=== PATIENT | male | born 1965 | race Caucasian/White ===

== ENCOUNTER 2016-12-06 21:55 | Emergency (ER) | payer MEDICARE, OTHER, SELFPAY ==
[~2016-12-06 21:55] MED LIST: ABILIFY20 MG; ALDACTONE25 M1 PO; ALPROSTADIL 40 MCG IC; ANORO ELLIPTA1 EAC1 INH; ASPIRIN EC325 M1 PO; ASPIRIN325 MG PO; ASPIRIN81 MG; ASPIRIN81 MG PO; BACITRACIN28.4 G2 TP; BISACODYL5 M1 PO; BISCOLAX10 MG PR; BUSPAR30 MG; BUSPIRONE HCL30 MG; CAVERJECT40 MCG IC; CITRATE OF MAG300 M1 PO; CLEOCIN HCL150 M1 PO; CLEOCIN HCL300 M1 PO; CONSTULOSE10 G/15 ML; CRESTOR20 MG; CULTURELLE1 EAC1 PO; CYCLOBENZAPRINE10 M1 PO; CYCLOBENZAPRINE5 M1 PO; CYMBALTA30 M1 PO; DEEP SEA45 M1; DESIPRAMINE HCL10 MG; DESIPRAMINE HCL10 MG PO; DICYCLOMINE HCL20 M1 PO; FLEXERIL10 MG; FLEXERIL10 MG PO; FUROSEMIDE20 MG PO; GABAPENTIN600 MG PO; GLIPIZIDE10 MG PO; HYDROPHILIC113 GM TOP; HYDROXYZINE HCL50 M1 PO; IMDUR30 MG; IMDUR60 MG; ISOSORBIDE MONO60 M3 PO; ISOSORBIDE MONO60 MG PO; LANTUS SOL100 UNIT/1 SC; LANTUS100 U/ML; LANTUS100 U/ML SC; LASIX20 M1 PO; LASIX40 M1 PO; LEVAQUIN750 M1 PO; LEVOTHYROXINE50 MC3 PO; LEVOTHYROXINE50 MCG PO; LIPITOR40 M1 PO; LISINOPRIL10 MG PO; LISINOPRIL5 MG; LOPRESSOR50 M1 PO; LOPRESSOR50 MG; LYRICA150 MG/CAP PO; MEDS; METHADONE HCL10 M1 PO; METHADONE HCL10 MG; METHADONE HCL10 MG PO; METHADONE5 MG; METOCLOPRAMIDE10 M1 PO; METOCLOPRAMIDE10 MG PO; METOPROLOL TART25 MG; METOPROLOL TART50 MG PO; MIRALAX17 G2 PO; MIRTAZAPINE15 MG; MIRTAZAPINE45 M2 PO; MIRTAZAPINE45 MG PO; MOXIFLOXACIN H400 MG PO; MULTI VITAMIN1 EAC1 PO; MULTIVITAMINS1 EAC5 PO; NEURONTIN300 M1 PO; NEURONTIN300 MG; NICODERM CQ1 EAC2 TD; NICOTINE GUM4 MG CH; NIFEDIAC CC60 MG; NITROGLYCERIN0.4 M2 SL; NORVASC10 M2 PO; NOVOLIN R100 U/ML; NOVOLOG FL100 UNIT/1; NOVOLOG FL100 UNIT/1 SQ; NOVOLOG FL100 UNIT/2 SC; NOVOLOG100 U/M; OMEGA 31 CAP; OMEPRAZOLE20 M2 PO; OMEPRAZOLE20 M3 PO; OMEPRAZOLE20 MG; PERCOCET 5/3251 TAB PO; PLAVIX75 M1 PO; PLAVIX75 MG PO; PREDNISONE50 M1 PO; PREVALITE4 GM/PK3 PO; RANEXA1000 M1 PO; RANEXA1000 MG PO; RANEXA500 MG PO; REGLAN10 MG; SENNA LAX8.6 M2 PO; SIMVASTATIN20 MG PO; SODIUM CHLORI1000 ML TOP; SODIUM CHLORIDE20 M3 TOP; SULFAMETHOXAZO1 EAC5 PO; SULFAMYLON SOL250 M1 EXT; ULTRAM50 M1 PO; VENTOLIN HFA18 G2 INH; WELLBUTRIN SR100 M2 PO; WELLBUTRIN XL300 MG; WELLBUTRIN100 MG; WELLBUTRIN100 MG PO; ZOCOR80 MG; ZOFRAN4 M2 PO; [UNRECOGNIZED DRUG - OTHER]
[2017-01-11] MEDS ORDERED: DEMADEX20 M1 PO ×2 (08:35)
== END 2016-12-07 00:28 ==
LOC: EDMED 21:55
DX: K59.00 Constipation, unspecified (principal); Z87.19 Personal history of other diseases of the digestive system; J44.9 Chronic obstructive pulmonary disease, unspecified; Z90.89 Acquired absence of other organs; Z90.49 Acquired absence of other specified parts of digestive tract; Z79.82 Long term (current) use of aspirin; Z79.899 Other long term (current) drug therapy; F17.200 Nicotine dependence, unspecified, uncomplicated

== ENCOUNTER 2017-02-10 18:17 | Observation (INO) | payer MEDICARE ==
[~2017-02-10 18:17] MED LIST changes: +DEMADEX20 M1 PO
[2017-02-10] MEDS ORDERED: NORVASC10 M2 PO (18:43)
[2017-02-10] MEDS ORDERED: ALBUTEROL2.5 MG/3 M INH (18:43)
[2017-02-10] MEDS ORDERED: VENTOLIN HFA18 G2 PO (18:43)
[2017-02-10] MEDS ORDERED: BACITRACIN28.4 G2 TP (18:44)
[2017-02-10] MEDS ORDERED: LIPITOR40 M1 PO (18:44)
[2017-02-10] MEDS ORDERED: ASPIRIN EC325 M1 PO (18:44)
[2017-02-10] MEDS ORDERED: BISCOLAX10 MG PR (18:44)
[2017-02-10] MEDS ORDERED: PLAVIX75 M1 PO (18:45)
[2017-02-10] MEDS ORDERED: BISACODYL5 M1 PO (18:45)
[2017-02-10] MEDS ORDERED: BUPROPION HCL100 M2 PO (18:45)
[2017-02-10] MEDS ORDERED: CYCLOBENZAPRINE10 M1 PO (18:46)
[2017-02-10] MEDS ORDERED: ISOSORBIDE MONO30 M4 PO (18:47)
[2017-02-10] MEDS ORDERED: AQUAPHOR99 GM TP (18:47)
[2017-02-10] MEDS ORDERED: SENNA S PO (18:47)
[2017-02-10] MEDS ORDERED: METHADONE HCL10 M1 PO (18:48)
[2017-02-10] MEDS ORDERED: LEVO-T50 MCG PO (18:48)
[2017-02-10] MEDS ORDERED: METOLAZONE2.5 M1 PO (18:48)
[2017-02-10] MEDS ORDERED: LOPRESSOR50 M1 PO (18:49)
[2017-02-10] MEDS ORDERED: NICOTINE GUM2 MG CH (18:49)
[2017-02-10] MEDS ORDERED: MIRTAZAPINE30 M2 PO (18:49)
[2017-02-10] MEDS ORDERED: OMEPRAZOLE MAGN20 M1 PO (18:49)
[2017-02-10] MEDS ORDERED: SODIUM CHLORIDE (18:50)
[2017-02-10] MEDS ORDERED: LYRICA150 MG/CAP PO (18:50)
[2017-02-10] MEDS ORDERED: POTASSIUM CHLO10 ME2 PO (18:50)
[2017-02-10] MEDS ORDERED: DEMADEX20 M1 PO ×2 (18:51→18:52)
[2017-02-10] MEDS ORDERED: NOVOLOG100 UNIT/2 SC (18:53)
[2017-02-10] MEDS ORDERED: LANTUS SOL100 UNIT/1 SC (18:53)
[2017-02-10 19:08] LABS: BASO % 0.2 % (0-2); EOS % 1.2 % (0-7); EOSINOPHIL ABSOLUTE COUNT 0.1 tho/cmm (0.0-0.7); HCT-HEMATOCRIT 42.9 % (36.0-53.5); HGB-HEMOGLOBIN 15.3 gm/dl (13.5-17.0); IMMATURE GRANULOCYTES ABSOLUTE 0.05 tho/cmm (0-0.03); IMMATURE GRANULOCYTES PERCENT 0.6 % (0-0.3); LYMPH % 30.9 % (20-45); LYMPH ABSOLUTE COUNT 2.8 tho/cmm (0.8-4.5); MCH (MEAN CORPUSCULAR HGB) 31.6 pg (28.0-32.0); MCHC MEAN CORPUSCULAR HGB CONC 35.7 % (32.0-36.0); MCV (MEAN CELL VOLUME) 88.6 fl (82.0-96.0); MEAN PLATELET VOLUME 9.7 cmc (9.4-12.4); MONO % 12.3 % (0-12); MONOCYTE ABSOLUTE COUNT 1.1 tho/cmm (0.0-1.2); NEUTROPHIL ABSOLUTE COUNT 4.9 tho/cmm (1.6-8.0); NEUTROPHIL-AUTOMATED 4.9 tho/cmm (1.6-8.0); NEUTROPHILS % 54.8 % (40-80); PLATELET COUNT 175 tho/cmm (150-450); RED BLOOD COUNT 4.84 mil/cmm (4.40-5.70); RED CELL DISTRIBUTION WIDTH 15.4 % (12.4-16.4)
[2017-02-10 19:26] LABS: ALB/GLOB RATIO 0.5 (0.8-2.0); ALKALINE PHOSPHATASE 101 U/L (33-138); ALT/SGPT 21 U/L (12-78); ANION GAP 13 mmol/L (0-20); AST/SGOT 22 U/L (10-40); BILIRUBIN,TOTAL 0.4 mg/dl (0.0-1.5); BLOOD UREA NITROGEN 42 mg/dl (6-24); CALCIUM 9.2 mg/dl (8.5-10.5); CARBON DIOXIDE-VENOUS 32 mmol/L (22-32); CHLORIDE 93 mmol/l (96-110); CREATININE 1.97 mg/dl (0.60-1.30); LIPASE 60 U/L (73-393); POTASSIUM 3.3 mmol/L (3.7-5.1); SODIUM 135 mmol/L (135-145); eGFR VALUE FOR BLACK 45 mL/Min
[2017-02-10 19:30] LABS: GLUCOSE 66 mg/dL (70-110)
[2017-02-10 20:22] LABS: URINE BILIRUBIN NEGATIVE (NEG); URINE BLOOD SMALL (NEG); URINE GLUCOSE (UA) NEGATIVE (NEG); URINE KETONE NEGATIVE (NEG); URINE LEUKOCYTE ESTERASE NEGATIVE (NEG); URINE NITRITE NEGATIVE (NEG); URINE PROTEIN MODERATE (NEG)
[2017-02-10 20:23] LABS: URINE APPEARANCE CLEAR; URINE COLOR YELLOW
[2017-02-10 20:26] LABS: URINE EPITHELIAL CELLS RARE /[HPF] (0-10); URINE WBC 0 /[HPF] (0-5)
[2017-02-11 06:03] LABS: ANION GAP 12 mmol/L (0-20); BLOOD UREA NITROGEN 32 mg/dl (6-24); CALCIUM 8.9 mg/dl (8.5-10.5); CARBON DIOXIDE-VENOUS 31 mmol/L (22-32); CHLORIDE 97 mmol/l (96-110); CREATININE 1.51 mg/dl (0.60-1.30); POTASSIUM 3.3 mmol/L (3.7-5.1); SODIUM 137 mmol/L (135-145); eGFR VALUE FOR BLACK 62 mL/Min
[2017-02-11 06:07] LABS: GLUCOSE 204 mg/dL (70-110)
[2017-02-11 06:08] LABS: TSH-THYROID STIMULATING HORM. 2.93 uIU/ml (0.40-3.80)
== END 2017-02-11 13:35 ==
LOC: EDMED 18:17 → EMR2 02-11 01:37 → CAR1 02-11 08:24
PROVIDERS: Emergency Medicine; Internal Medicine; ADMIT Hospitalist
DX: I95.1 Orthostatic hypotension (principal); N17.9 Acute kidney failure, unspecified; E87.6 Hypokalemia; I25.10 Atherosclerotic heart disease of native coronary artery without angina pectoris; I50.30 Unspecified diastolic (congestive) heart failure; E78.5 Hyperlipidemia, unspecified; E11.8 Type 2 diabetes mellitus with unspecified complications; J44.9 Chronic obstructive pulmonary disease, unspecified; F17.210 Nicotine dependence, cigarettes, uncomplicated; Z88.6 Allergy status to analgesic agent; Z79.899 Other long term (current) drug therapy; Z90.49 Acquired absence of other specified parts of digestive tract
CPT/HCPCS: G0378; J1815; J7030